=== PATIENT | female | born 1990 | race African-American/Black ===

== ENCOUNTER 2022-03-02 20:47 | Emergency (ER) | payer OTHER ==
[~2022-03-02] VITALS: Ht 175.3 cm; Wt 134.1 kg
[2022-03-02 20:54] VITALS: BP 132/79; TEMP 98
[2022-03-02] MEDS ORDERED: AMOXICILLIN 8751 TAB PO (21:37)
[2022-03-02 21:55] VITALS: PULSE 84
== END 2022-03-02 21:55 | disposition home or self-care (01) ==
LOC: COL.ER 20:47
DX: S61.531A Puncture wound without foreign body of right wrist, initial encounter (principal); W54.0XXA Bitten by dog, initial encounter